=== PATIENT | male | born 1965 | race Caucasian/White ===

== ENCOUNTER 2018-05-29 10:18 | Emergency (ER) | payer MEDICAID ==
--- NOTE | 2018-05-29 11:18 | ASMTCAGE ---
CAGE Do you feel you ought to Answers: No cut down on your drinking or drug use? Do people annoy you by Answers: Yes criticizing your drinking or drug use? Do you feel guilty about Answers: No your drinking or drug use? 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 Additional Comments Pt admits to drinking 4-5 beers after work daily. Discussed resources if he decides he would like to "cut down" or seek help Date Signed: 05/29/2018 11:17 AM Electronically Signed By:Christiana Balbuena RN
[2018-05-29] MEDS ORDERED: NS 1,000 ML IV ONE (11:41)
[2018-05-29] MEDS ORDERED: fentaNYL 100 MCG/2 ML INJ IVP ONE (11:41)
[2018-05-29 12:35] LABS: PLATELET COUNT 218 10^3/uL (150-400)
[2018-05-29] MEDS ORDERED: IOPAMIDOL (ISOVUE-300) 100 ML BTL ONE (13:02)
[2018-05-29] MEDS ORDERED: HYDROmorphONE/DILAUDID 2 MG/ML INJ IVP ONE (13:26)
[2018-05-29] MEDS ORDERED: HYDROmorphONE/DILAUDID 1 MG/ML INJ ONE (13:27)
--- NOTE | 2018-05-29 13:42 | EDPHY ---
General - History Smoking Status: Heavy smoker Time Seen by Provider: 05/29/18 11:15 Narrative: CLINICAL IMPRESSION: Fall, rib pain, abdominal pain, alcohol abuse ASSESSMENT/PLAN: 52-year-old alcoholic male presents to the emergency department 1 day after he fell in a parking lot in [place]. Patient denies hitting his head and has no headache, dizziness, vertigo, acute vision or hearing changes, and has a nonfocal neuro exam. He has reproducible pain to the right greater than left lateral rib cage. Generalized abdominal pain, and left hip pain. X-rays with rib films show old rib fractures which patient admits to having but there is no evidence of acute rib fracture, pneumothorax, sternal fracture. Atelectasis noted to right lower lung. X-rays of left hip unremarkable CT abdomen pelvis with no acute abnormality reported. Lab work is reassuring with no significant electrolyte imbalance, leukocytosis, renal insufficiency, or sign of severe dehydration. Alcohol level less than 10. Patient received IV fluids, Zofran and analgesics. He was improved, able to ambulate without assistance and with a steady gait. Patient seen and examined by Dr. Kitchen as well. We do not feel patient requires additional emergent imaging at this point. He was encouraged to decrease alcohol intake and follow up with his primary care provider in [place]. Warning signs return to ED sooner alignment discharge. DIFFERENTIAL DX: [Abdominal pain includes but not limited to acute appendicitis, diverticulitis, cholecystitis, pancreatitis, SBO, gastroenteritis, constipation. Differential diagnosis includes but not limited to myocardial ischemia, pulmonary embolus, chest wall pain, pleural inflammation, musculoskeletal chest wall pain, aortic aneurysm, and pulmonary infectious causes. ED PROCEDURES: See lab and/or imaging results below ED COURSE: 2:00 p.m.: CT results discussed with Dr. Crouch. Patient appears to have an old rib fracture at left rib 8 and 9. Patient's pain for me was primarily over the right rib. He has mucus plugging to the right lower lobe with associated atelectasis which is new since 2011. Triage notes say lung cancer but patient adamantly denies this. He reports no history of cancer to me. Case was discussed with Dr. Linda who will also seen examined the patient. Lab work without significant abnormality. Chest x-ray read by Radiology as possible old rib fractures but no evidence of acute rib fracture or cardiopulmonary disease. 2:50 p.m.: Patient seen by myself ambulating through the hallways without obvious distress or difficulty. Reports feeling mildly dizzy but contributes this to the narcotic pain medication he received. He feels well enough for discharge. He plans on calling a friend to pick him up or gets off work at 5. He will plan on waiting in the waiting room until that time. Tolerating p.o. Well. CHIEF COMPLAINT: Fall, rib pain, abdominal pain HPI: 52-year-old alcoholic male who lives in a shed in [place], presents to the emergency department by ambulance. Patient reports he fell in a parking lot yesterday. He does not sure if he slipped. He denies hitting his head or having loss of consciousness. He was able to get himself home. His friend called him last night and this morning and thought he sounded "out of it" and so called an ambulance. Patient states that he last drank on Sunday. However he does tell me that he had alcohol in his system yesterday when he fell. He has no complaints of headache, dizziness, acute vision or hearing change. No complaints of neck pain. He complains of right greater than left posterior and lateral rib pain and is concerned he broke a rib. No shortness of breath. There are some conflicting reports as to whether this patient has lung cancer which he denies. He is a regular smoker. He also complains of generalized abdominal pain and has been told that he has "severe diverticulitis". He has not had a bowel movement denies diarrhea and constipation and bloody stools. No reported fever or chills. He has not had anything to eat today. PAST MEDICAL HISTORY: Alcohol abuse, severe diverticulitis with infection, old history of prostatitis. Triage note states lung cancer although patient adamantly denies this. See nurse/triage notes for additional history if applicable Pertinent Past Surgical History: Surgery to left lower quadrant abdomen Family History: None reported Social History: Patient lives alone in a shed in [place], everyday smoker, everyday drinker REVIEW OF SYSTEMS: All other systems negative Constitutional: No fever, no chills, appetite change. Eyes: No discharge, vision change ENT: No sore throat, congestion, ear pain. Cardiovascular: Positive for chest pain, no palpitations. Respiratory: No cough, no shortness of breath, positive for rib pain. Gastrointestinal: Positive for abdominal pain, no vomiting, diarrhea. Genitourinary: No hematuria, dysuria, flank pain, pelvic pain Musculoskeletal: Positive for back pain, joint swelling, joint pain, myalgias. Skin: No rashes, color change. Neurological: No headache, dizziness, weakness. PHYSICAL EXAM: General Appearance: Alert, oriented, frail, disheveled, chronically ill- appearing, fatigued, NAD, appears dehydrated non-toxic appearing, VSS, no hypoxia. HEENT: TMs are clear bilaterally no perforation or FB, no injection, no evidence of serous or mucopurulent otitis. No hemotympanum or Marina sign. No hematoma or contusion to the scalp. Oropharynx clear is no erythema or exudates , no tonsillar hypertrophy or asymmetry. Dentition without abnormality. Eyes: PERRLA, no acute vision change, nystagmus, swelling, discharge, pain or photosensitivity. Conjunctiva pink, no pallor or injection Neck: Supple, nontender, no lymphadenopathy, no midline pain, FROM, no meningismus. Respiratory: There are no retractions, lungs are clear to auscultation. Reproducible pain to palpation primarily of the right inferior old lateral ribs extending posteriorly. Mild pain to the left lateral ribs. Cardiac: Regular rate and rhythm, no murmurs or gallops. Gastrointestinal: Abdomen is soft, generalized discomfort throughout bowel sounds normal, no masses/hernia, no rigidity, guarding or focal peritoneal findings. Neurological: [ Alert and oriented x 3, no focal neuro deficits Skin: Warm, dry, no rashes, no nodules on palpation. No open wounds Musculoskeletal: Extremities are symmetrical, full range of motion, no tenderness, deformity, swelling, or erythema. Pain to palpation along the left greater trochanter but with intact range of motion Psychiatric: Patient is oriented X 3, there is no agitation. MEDICAL DECISION MAKING: Patient was seen independently. Secondary supervising physician at time of evaluation was Dr. Kitchen. Diagnosis: Fall, left hip pain, rib pain, abdominal pain . New, requires workup Summary: See Assessment and Plan for summary of ED visit Clinical lab tests: ordered / reviewed. Independent visualization of images, tracing, or specimens: Yes / No. Decision to obtain medical records or history from someone other than the patient: No Review / Summarize previous medical records: Reviewed past hospital record Discussed patient with another provider: Dr. Kitchen, radiology Patient Progress: Improved, stable for discharge. (Milad Pichardo) Discussion: PHYSICIAN DOCUMENTATION: The patient initially seen and evaluated by JOSLYN Pichardo with complaint of rib pain. Please see her dictation for complete details. Additionally I obtained the following history: Fell on ice in [place] on Sunday. Significant pain ever since. On my examination I found the following: Diffusely tender right chest and abdomen. Reviewed Radiology no acute intra- abdominal injuries found. Likely acute rib fractures however may be chronic. The midlevel and I discussed the care and disposition of the patient. I authorize my typed signature that I authenticated this report. (Alejandra Kitchen) - Objective Vital Signs: Initial Vital Signs Temperature (C) 36.7 C 05/29/18 10:19 Heart Rate 71 05/29/18 10:19 Respiratory Rate 16 05/29/18 10:19 Blood Pressure 112/69 05/29/18 10:19 O2 Sat (%) 94 05/29/18 10:19 O2 Delivery Mode Room Air Allergies/Adverse Reactions: atropine Allergy (Verified 10/10/15 13:38) ciprofloxacin [From Cipro] Allergy (Verified 10/10/15 13:38) Itching ciprofloxacin HCl [From Cipro] Allergy (Verified 10/10/15 13:38) Itching Penicillins Allergy (Verified 10/10/15 13:38) Home Medications: Medication Instructions Recorded NK [No Known Home Meds] 10/10/15 Laboratory Results: Laboratory Results 05/29/18 12:20 02/27/19 12:20 Medications Given: Discontinued Medications Fentanyl (Sublimaze) 50 mcg IVP EDNOW ONE Stop: 05/29/18 11:42 Last Admin: 05/29/18 12:20 Dose: 50 mcg Hydromorphone HCl (Dilaudid) 0.5 mg IVP EDNOW ONE Stop: 05/29/18 13:27 Last Admin: 05/29/18 13:30 Dose: 0.5 mg Sodium Chloride (Ns) 1,000 mls @ 0 mls/hr IV EDNOW ONE; Wide Open PRN Reason: Protocol Stop: 05/29/18 11:42 Last Admin: 05/29/18 12:19 Dose: 1,000 mls Departure - Departure Disposition: Home, Routine, Self-Care Clinical Impression: Fall, Rib pain on right side, Abdominal pain Condition: Good Instructions: Fall Prevention for Older Adults (ED), Acute Abdominal Pain (ED) , Rib Contusion (ED) Additional Instructions: DISCHARGE INSTRUCTIONS FROM YOUR DOCTOR Thank you for visiting our emergency department today. You were treated by a physician agency sales management assistant today and your case was reviewed with our ED Attending physician. Please keep in mind that discharge from the emergency department does not mean that there is nothing wrong - it simply means that we have not identified an emergency condition that requires further evaluation or treatment in the hospital. You should always plan to follow up with primary care for re- evaluation of your condition in the next 2-3 days. If you have been referred to a specialist, please call as soon as possible (today or tomorrow) to schedule your follow up appointment at the appropriate time. DIAGNOSTIC WORKUP IN THE EMERGENCY DEPARTMENT INCLUDED LABORATORY EVALUATION, IV FLUIDS, NAUSEA MEDS, PAIN MEDS, CT ABDOMEN PELVIS, X-RAYS OF THE RIBS AND CHEST. NO IDENTIFIED ACUTE RIB FRACTURE. NO ACUTE FINDINGS IN THE ABDOMEN. LABORATORY EVALUATION IS REASSURING. YOU WERE SEEN AND EVALUATED BY OUR ED ATTENDING DR. KITCHEN WELL. CASE MANAGEMENT MET WITH YOU TODAY. PLEASE FOLLOW-UP WITH HER PRIMARY CARE PROVIDER. PLEASE STAY WELL-HYDRATED. RETURN TO THE EMERGENCY DEPARTMENT FOR WORSENING RIB PAIN, COUGH, FEVER, SHORTNESS OF BREATH, VOMITING, OR ANY OTHER CONCERNS. People present with illnesses and injuries in different ways, and it is always possible that we have missed something. You may always return for re-evaluation if symptoms worsen or if they are not improving or if you develop new/different symptoms. Again, thank you for choosing our emergency department. We hope that you feel better. Referrals: Obie Garcia MD [Primary Care Provider] - 1-2 days without fail
[2018-05-29 15:12] VITALS: BP 131/84
== END 2018-05-29 15:12 | disposition home or self-care (01) ==
LOC: EDUNIT#
DX: R07.81 Pleurodynia (principal); R10.0 Acute abdomen; M25.552 Pain in left hip; F10.129 Alcohol abuse with intoxication, unspecified; E86.9 Volume depletion, unspecified; Y90.0 Blood alcohol level of less than 20 mg/100 ml; W01.198A Fall on same level from slipping, tripping and stumbling with subsequent striking against other object, initial encounter; Y92.481 Parking lot as the place of occurrence of the external cause; Y93.01 Activity, walking, marching and hiking
CPT/HCPCS: 96374; G0480; J1170; J3010; Q9967